=== PATIENT | female | born 1960 | race African-American/Black ===

== ENCOUNTER 2019-04-27 23:38 | Emergency (ER) | payer OTHER ==
[2019-04-28] MEDS ORDERED: diphenhydrAMINE 50 MG/ML 1 ML VIAL IVP STA (01:46)
[2019-04-28] MEDS ORDERED: MORPHINE SULFATE 4 MG/ML SYRINGE IV STA (01:46)
[2019-04-28] MEDS ORDERED: SODIUM CHLORIDE 0.9% 500 ML 500 ML IV STA (01:46)
[2019-04-28] MEDS ORDERED: METOCLOPRAMIDE 5 MG/ML 2 ML VIAL IVP STA (01:46)
[2019-04-28] MEDS ORDERED: ACETAMINOPHEN TAB 325 MG TAB PO STA (01:57)
--- NOTE | 2019-04-28 03:43 | CT ---
EXAM: CT Head Without Intravenous Contrast CLINICAL HISTORY:: Pain TECHNIQUE: Axial computed tomography images of the head/brain without intravenous contrast. DLP is 1113.4 mGy-cm. This CT exam was performed using one or more of the following dose reduction techniques: automated exposure control, adjustment of the mA and/or kV according to patient size, and/or use of iterative reconstruction technique. COMPARISON: No relevant prior studies available. FINDINGS: Brain: Unremarkable. No hemorrhage. No significant white matter disease. No edema. Ventricles: Unremarkable. No ventriculomegaly. Bones/joints: Unremarkable. No acute fracture. Soft tissues: Unremarkable. Sinuses: Unremarkable as visualized. No acute sinusitis. Mastoid air cells: Unremarkable as visualized. No mastoid effusion. IMPRESSION: Normal head/brain CT.
[2019-04-28 03:58] VITALS: BP 134/84; PULSE 76; RESP 16; TEMP 97.8
--- NOTE | 2019-04-28 03:58 | ED ---
General Adult HPI - General Source: patient, RN notes reviewed, old records reviewed Mode of arrival: ambulatory Limitations: no limitations <Apolinar Bauman - Last Filed: 04/28/19 03:57> <Amalia Kline - Last Filed: 04/28/19 05:25> - General Chief complaint: Headache Stated complaint: Migraine Time Seen by Provider: 04/28/19 01:27 - History of Present Illness Initial comments: 58-year-old female patient past medical history of migraine headache disorder presents ED for migraine headache for approximately 2 days. Patient does report this is similar to her migraine headaches in the past years a states that she does have pain behind her left eye which is typical for her as well some blurred vision is typical for her. Patient denies worsening with time patient denies thunderclap onset, states was slow insidious onset. Denies any recent falls or trauma, denies any loss of consciousness. Patient denies any other complaints at this time. Denies any chest pain shortness breath abdominal pain nausea vomiting or diarrhea. Systemic: Pt denies fatigue, fever/chills, rash. Pt denies weakness, night s weats, weight loss. Neuro: Pt denies headache, visual disturbances, syncope or pre-syncope. HEENT: Pt denies ocular discharge or irritation, otalgia, rhinorrhea, pharyngitis or notable lymphadenopathy. Cardiopulmonary: Pt denies chest pain, SOB, heart palpitations, dyspnea on exertion. Abdominal/GI: Pt denies abdominal pain, n/v/d. : Pt denies dysuria, burning w/ urination, frequency/urgency. Denies new onset urinary or bowel incontinence. MSK: Pt denies myalgia, loss of strength or function in extremities. Neuro: Pt denies new onset weakness, paresthesias. (Apolinar Bauman) - Related Data Allergies Allergy/AdvReac Type Severity Reaction Status Date / Time No Known Allergies Allergy Verified 04/27/19 23:46 Review of Systems ROS Other: All systems not noted in ROS Statement are negative. <Apolinar Bauman - Last Filed: 04/28/19 03:57> ROS Other: All systems not noted in ROS Statement are negative. <Amalia Kline - Last Filed: 04/28/19 05:25> ROS Statement: Those systems with pertinent positive or pertinent negative responses have been documented in the HPI. Past Medical History Past Medical History: No Reported History Additional Past Medical History / Comment(s): migrains History of Any Multi-Drug Resistant Organisms: None Reported Past Surgical History: No Surgical Hx Reported Past Psychological History: No Psychological Hx Reported Smoking Status: Current every day smoker Past Alcohol Use History: None Reported Past Drug Use History: None Reported <Apolinar Bauman - Last Filed: 04/28/19 03:57> General Exam Limitations: no limitations <Apolinar Bauman - Last Filed: 04/28/19 03:57> - General Exam Comments Initial Comments: Constitutional: NAD, AOX3, Pt has pleasant affect. HEENT: NC/AT, trachea midline, neck supple, no lymphadenopathy. Posterior pharynx non erythematous, without exudates. External ears appear normal, without discharge. Mucous membranes moist. Eyes PERRLA, EOM intact. There is no scleral icterus. No pallor noted. Cardiopulmonary: RRR, no murmurs, rubs or gallops, no JVD noted. Lungs CTAB in anterior and posterior calvin. No peripheral edema. Abdominal exam: Abdomen soft and non-distended. Abdomen non-tender to palpation in all 4 quadrants. Bowel sounds active in LLQ. No hepatosplenomegaly. No ecchymosis Neuro: CN II-XII intact. No nuchal rigidity. No raccon eyes, no cope sign, no hemotympanum. No cervical spinal tenderness. MSK: No posterior calf tenderness bilaterally, homans sign negative bilaterally. Posterior tibialis and radial pulse +2 bilaterally. Sensation intact in upper and lower extremities. Full active ROM in upper and lower extremities, 5/5 str egnth. (Apolinar Bauman) Course Vital Signs 04/27/19 04/28/19 23:43 03:56 Temperature 98.4 F 97.8 F Pulse Rate 89 76 Respiratory 18 16 Rate Blood Pressure 142/86 134/84 O2 Sat by Pulse 96 99 Oximetry Medical Decision Making <Apolinar Bauman - Last Filed: 04/28/19 03:57> <Amalia Kline - Last Filed: 04/28/19 05:25> - Medical Decision Making 58-year-old female patient past medical history of migraine headache disorder presents ED for migraine headache for approximately 2 days. Patient does report this is similar to her migraine headaches in the past years a states that she does have pain behind her left eye which is typical for her as well some blurred vision is typical for her. Patient denies worsening with time patient denies thunderclap onset, states was slow insidious onset. Denies any recent falls or trauma, denies any loss of consciousness. Patient denies any other complaints at this time. Denies any chest pain shortness breath abdominal pain nausea vomiting or diarrhea. Patient fell signs stable, afebrile. Physical exam didn't display acute pathology, and a G0, She is able limits. Patient was offered CT, and patient would like to undergo a computed tomography of brain. CT did not display any acute pathology. Patient headache resolved with analgesic. Patient discharged, will follow up with primary care provider once days, return to ER condition worsens. Case discussed with Dr. Kline. (Apolinar Bauman) I was available for consultation in the emergency department. The history and physical exam were done by the midlevel provider. I was consulted for this patient's care. I reviewed the case with the midlevel provider and based on their presentation of the patient, I agree with the assessment, medical decision making and plan of care as documented. Chart was dictated using [employer] dictation software. Attempts were made to correct any dictation errors however some typographical errors may persist. (Amalia Kline) Disposition Is patient prescribed a controlled substance at d/c from ED?: No <Apolinar Bauman - Last Filed: 04/28/19 03:57> <Amalia Kline - Last Filed: 04/28/19 05:25> Clinical Impression: Acute headache Disposition: HOME SELF-CARE Condition: Stable Instructions (If sedation given, give patient instructions): Acute Headache (ED) Additional Instructions: Patient to adhere to previously discussed treatment plan and will take medication(s) as directed. Patient to follow up with PCP in 1-2 days. Patient to return to ED if symptoms do not improve. Follow-up with primary care provider tomorrow, return to ER if condition worsens. Referrals: None,Stated [Primary Care Provider] - 1-2 days
== END 2019-04-28 04:40 | disposition home or self-care (01) ==
LOC: EC 23:38
DX: R51 Headache (principal); H53.8 Other visual disturbances; H57.12 Ocular pain, left eye; F17.200 Nicotine dependence, unspecified, uncomplicated; Z86.69 Personal history of other diseases of the nervous system and sense organs; Z53.20 Procedure and treatment not carried out because of patient's decision for unspecified reasons
CPT/HCPCS: 70450; 96374; 96375; 99284